=== PATIENT | female | born 1980 | race American Indian/Alaskan Native ===

== ENCOUNTER 2016-12-13 16:09 | Day surgery (SDC) | payer SELFPAY ==
[2016-12-13 17:24] LABS: Basophils % (Auto) 0.2 % (0.0-1.8); Eosinophils % (Auto) 1.4 % (0.0-4.3); Hematocrit 36.3 % (30.3-42.9); Hemoglobin 12.5 gm/dl (10.1-14.3); Mean Corpuscular HGB Conc 35 % (30-34); Mean Corpuscular Hemoglobin 31 pg (28-32); Mean Corpuscular Volume 91 fl (79-97); Platelet Count 216 K/mm3 (140-440); Red Blood Count 4.01 M/mm3 (3.65-5.03); White Blood Count 8.9 K/mm3 (4.5-11.0)
[2016-12-13 17:28] LABS: Anion Gap 19 mmol/L; Blood Urea Nitrogen 8 mg/dL (7-17); Calcium 8.8 mg/dL (8.4-10.2); Carbon Dioxide 22 mmol/L (22-30); Chloride 100.9 mmol/L (98-107); Glucose 94 mg/dL (65-100); Potassium 4.1 mmol/L (3.6-5.0); Sodium 138 mmol/L (137-145)
[2016-12-13] MEDS ORDERED: ZOFRAN IV ONE (18:00)
[2016-12-13] MEDS ORDERED: NACL 0.9% 1000 ML 1,000 ML IV ONE (18:00)
[2016-12-13] MEDS ORDERED: DILAUDID IV ONE (18:00)
--- NOTE | 2016-12-13 18:05 | Emergency Department Report ---
ED Abdominal Pain HPI - General Chief Complaint: Urogenital-Female Stated Complaint: ECTOPIC PREG Time Seen by Provider: 12/13/16 18:00 Source: patient Mode of arrival: Ambulatory Limitations: No Limitations - History of Present Illness MD Complaint: abdominal pain -: Gradual Location: RLQ Radiation: none Migration to: no migration Severity: moderate Severity scale (0 -10): 4 Quality: stabbing, aching Consistency: constant Improves With: nothing Worsens With: nothing Associated Symptoms: denies: nausea, vomiting, diarrhea, fever, chills, constipation, dysuria, hematemesis, hematochezia - Related Data LMP (females 10-50): Home Medications Medication Instructions Recorded Confirmed Last Taken Amlodipine Besylate/Benazepril 1 each PO QDAY 12/13/16 12/13/16 12/13/16 [Lotrel 5-20 mg] Naproxen Sodium [Aleve TAB] 440 mg PO QDAY PRN 12/13/16 12/13/16 12/13/16 Previous Rx's Medication Instructions Recorded Last Taken Type HYDROcodone/APAP 5-325 [[place] 1 each PO Q6HR PRN #20 tablet 12/13/16 Unknown Rx 5/325] Allergies Allergy/AdvReac Type Severity Reaction Status Date / Time No Known Allergies Allergy Verified 12/13/16 20:30 ED Review of Systems ROS: Stated complaint: ECTOPIC PREG Other details as noted in HPI Comment: All other systems reviewed and negative ED Past Medical Hx - Past Medical History Hx Hypertension: Yes - Surgical History Additional Surgical History: HERNIA REPAIR. LEFT FALLOPIAN TUBE REMOVED 2006 - Social History Smoking Status: Never Smoker Substance Use Type: None - Medications Home Medications: Home Medications Medication Instructions Recorded Confirmed Last Taken Type Amlodipine Besylate/Benazepril 1 each PO QDAY 12/13/16 12/13/16 12/13/16 History [Lotrel 5-20 mg] HYDROcodone/APAP 5-325 [[place] 1 each PO Q6HR PRN #20 tablet 12/13/16 Unknown Rx 5/325] Naproxen Sodium [Aleve TAB] 440 mg PO QDAY PRN 12/13/16 12/13/16 12/13/16 History ED Physical Exam - General Limitations: No Limitations General appearance: alert, in no apparent distress - Head Head exam: Present: atraumatic, normocephalic - Eye Eye exam: Present: normal appearance, PERRL - ENT ENT exam: Present: mucous membranes moist - Neck Neck exam: Present: normal inspection - Respiratory Respiratory exam: Present: normal lung sounds bilaterally. Absent: respiratory distress - Cardiovascular Cardiovascular Exam: Present: regular rate, normal rhythm. Absent: systolic murmur, diastolic murmur, rubs, gallop - GI/Abdominal GI/Abdominal exam: Present: soft, tenderness (rlq moderate tenderness), normal bowel sounds. Absent: distended, guarding, rebound, rigid - Extremities Exam Extremities exam: Present: normal inspection - Back Exam Back exam: Present: normal inspection - Neurological Exam Neurological exam: Present: alert, oriented X3 - Psychiatric Psychiatric exam: Present: normal affect, normal mood - Skin Skin exam: Present: warm, dry, intact, normal color. Absent: rash ED Course Vital Signs 12/13/16 12/13/16 12/13/16 16:41 18:20 19:53 Temperature 99.0 F Pulse Rate 102 H 86 Respiratory 17 18 16 Rate Blood Pressure 140/90 Blood Pressure 121/73 [Left] O2 Sat by Pulse 100 99 Oximetry 12/13/16 12/13/16 12/13/16 21:25 22:55 23:00 Temperature 97.2 F L Pulse Rate 89 90 100 H Respiratory 16 14 19 Rate Blood Pressure 126/70 119/70 Blood Pressure 127/84 [Left] O2 Sat by Pulse 100 100 100 Oximetry 12/13/16 12/13/16 12/13/16 23:05 23:10 23:15 Temperature Pulse Rate 92 H 85 88 Respiratory 19 19 19 Rate Blood Pressure 118/74 131/74 127/79 Blood Pressure [Left] O2 Sat by Pulse 100 100 100 Oximetry 12/13/16 12/13/16 23:30 23:45 Temperature 98 F Pulse Rate 86 96 H Respiratory 19 19 Rate Blood Pressure 124/70 121/74 Blood Pressure [Left] O2 Sat by Pulse 100 100 Oximetry - Consultations Consultation #1: 12/13/16 18:06 obgtyn paged 2 min ago waiting on them to call back Consultation #2: 12/13/16 18:[address] jeromy montenegro and agree with the consult will see patient in the ER ED Medical Decision Making - Lab Data Result diagrams: 12/13/16 16:45 12/13/16 16:45 - Radiology Data Radiology results: report reviewed, image reviewed - Medical Decision Making admitted an to the OR by Dr. Montenegro Critical Care Time: Yes Critical care time in (mins) excluding proc time.: 35 Critical care attestation.: If time is entered above; I have spent that time in minutes in the direct care of this critically ill patient, excluding procedure time. ED Disposition Clinical Impression: Ectopic , Abdominal pain Disposition: OP ADMIT IP TO THIS HOSP Is pt being admited?: Yes Does the pt Need Aspirin: No Condition: Good Time of Disposition: 01:45
--- NOTE | 2016-12-13 20:27 | Short Stay Summary ---
Short Stay Documentation Date of service: 12/13/16 Narrative H&P: Pt is a 36yo BF LMP 11/12/16 presents from [facility] complaining of right sided pelvic pain. Pelvic u/s showed positive pole and heart rate in the right fallopian tube consistent with a Right ectopic . She had a previous left salpingectomy for a left ectopic . We will proceed with a Laproscopic surgery with left salpingostopmy, but possible left salpingectomy. - History Principal diagnosis: right ectopic H&P: obtained from office Past Medical History: hypertension Past Surgical History: Other (Laproscopic left salpingectomy; Hernia repair) Social history: no significant social history, single - Allergies and Medications Current Medications: Allergies No Known Allergies Allergy (Unverified 12/13/16 16:37) Home Medications Medication Instructions Recorded Confirmed Last Taken Type Amlodipine Besylate/Benazepril 1 each PO QDAY 12/13/16 12/13/16 12/13/16 History [Lotrel 5-20 mg] Naproxen Sodium [Aleve TAB] 440 mg PO QDAY PRN 12/13/16 12/13/16 12/13/16 History - Physical exam General appearance: no acute distress Integumentary: no rash HEENT: Atraumatic Lungs: Clear to auscultation Breasts: deferred Heart: Regular rate Gastrointestinal: normal, tenderness (RLQ) Female Genitourinary: deferred Rectal Exam: deferred Extremities: No edema Neurological: Normal gait, Normal speech - Brief post op/procedure progress note Date of procedure: 12/13/16 Pre-op diagnosis: 1. Pelvic pain 2. Right ectopic Post-op diagnosis: same (with hemotoperitoneum) Procedure: 1. Laproscopic right salpingectomy 2. Evacuation of hemtoperitoneum Anesthesia: GETA Findings: A normal uterus with absent left fallopian tube. Normal ovaries bilaterally. A large right adnexal mass within the right fallopian tube. Approximately 50ml of hematoperitoneum. Perihepatic adhesions. Surgeon: TRACY WILSON Desizing Machine Operator Head End: JOBY WILSON Estimated blood loss: 50-100ml Pathology: list (right fallopian tube) Specimen disposition: to lab Condition: stable - Hospital course Hospital course: Unremarkable. - Disposition Condition at discharge: Good Disposition: DC- TO HOME OR SELFCARE Short Stay Discharge Plan Activity: no restrictions Diet: regular Wound: open to air, keep clean and dry Follow up with: PRIMARY CARE, [Primary Care Provider] - 3-5 Days TRACY WILSON MD [Family Provider] - 14 Days Prescriptions: HYDROcodone/APAP 5-325 [[place] 5/325] 1 each PO Q6HR PRN #20 tablet PRN Reason: Pain
[2016-12-13] MEDS ORDERED: ANCEF/STERILE WATER 2 GM/20 ML 2 GM/20 ML SYRINGE IV NR (21:00)
[2016-12-13] MEDS ORDERED: LACTATED RINGERS 1,000 ML IV SCH (21:00)
[2016-12-13] MEDS ORDERED: DILAUDID ONE (21:30)
[2016-12-13] MEDS ORDERED: DIPRIVAN 10 MG/ML IV ONE (21:30)
[2016-12-13] MEDS ORDERED: QUELICIN ONE (21:31)
[2016-12-13] MEDS ORDERED: XYLOCAINE MPF 2% ONE (21:31)
[2016-12-13] MEDS ORDERED: ZEMURON IV ONE (21:31)
[2016-12-13] MEDS ORDERED: MARCAINE 0.5% 30 ML INFILTRATI ONE (21:32)
--- NOTE | 2016-12-13 21:41 | Anesthesia Day of Surgery ---
Anesthesia Day of Surgery - Day of Surgery Patient Examined: Yes Patient H&P Reviewed: Yes Patient is NPO: Yes (last meal @ 10:30AM)
--- NOTE | 2016-12-13 21:41 | Anesthesia Consultation ---
Anesthesia Consult and Med Hx Date of service: 12/13/16 - Airway Anesthetic Teeth Evaluation: Good ROM Head & Neck: Adequate Mental/Hyoid Distance: Adequate Mallampati Class: Class II Intubation Access Assessment: Probably Good - Pre-Operative Health Status ASA Pre-Surgery Classification: ASA2, Emergency Proposed Anesthetic Plan: General - Cardiovascular System Hx Hypertension: Yes - Additional Comments Anesthesia Medical History Comments: ectopic
[2016-12-13] MEDS ORDERED: MARCAINE 0.5% INFILTRATI ONE (22:00)
[2016-12-13] MEDS ORDERED: ANCEF ONE ×2 (22:10)
[2016-12-13] MEDS ORDERED: ZOFRAN ONE (22:38)
[2016-12-13] MEDS ORDERED: BLOXIVERZ ONE (22:39)
[2016-12-13] MEDS ORDERED: ROBINUL ONE (22:39)
[2016-12-13] MEDS ORDERED: TORADOL ONE (22:44)
[2016-12-13] MEDS ORDERED: NACL 0.9% 1000 ML 1,000 ML ONE (22:46)
--- NOTE | 2016-12-13 23:20 | Operative Report ---
Operative Report Operative Report: Date of procedure: 12/13/2016 Pre-operative diagnosis: 1. Pelvic pain 2. Right ectopic Post-operative diagnosis: Same with hematoperitoneum Procedure name(s): 1. Laparoscopic right salpingectomy 2. Evacuation of hematoperitoneum Surgeon: Abdiel Lr MD Open Hearth Furnace Laborer: Malinda Lr MD Anesthesia: General endotracheal intubation by Dr. Fabian Rodriguez EBL: 50 mL's Findings: A normal uterus with absent left fallopian tube. Normal ovaries bilaterally. A large mass in the distal portion of the right fallopian tube. Approximately 50 mls of hematoperitoneum. Perihepatic adhesions. Procedure: After the patient was correctly identified, she was prepped and draped in usual sterile fashion and placed in dorsolithotomy position. First the bladder was catheterized using Kay catheter, and next the speculum was placed in vaginal vault and the anterior lip of the cervix was grasped using single-tooth tenaculum. The uterine manipulator was then placed and the tenaculum and speculum were removed. Attention was then turned to the abdomen where first a periumbilical incision was made using the skin knife, and the Optiview trocar was inserted under direct visualization. After an adequate amount of abdominal insufflation, position of the pelvic organs found approximately 50 mL's of blood in the peritoneal cavity. The uterus appeared to be normal with absent left fallopian tube, and the right fallopian tube showed a large mass in the distal portion of the tube. Next a suprapubic incision and a right lateral incision was made through which 5 mm trochars were placed in order to aid in manipulation of the pelvic organs. The suction string studies director was used to suction blood from the pelvic cavity and irrigate the pelvic organs. The tripolar cautery was used to clamp cauterized and cut the distal portion of the right fallopian tube, thus excising the right ectopic . The specimen was placed in the Endopouch and removed and sent to pathology. Copious amounts of irrigation was again performed, and after excellent hemostasis was assured, the procedure was considered complete. The Tisseel sealant to sprayed along the salpingectomy site. All instruments removed from abdomen. The abdomen was deflated, and the periumbilical incision was closed using 0 Vicryl suture in a figure 8 configuration on the fascia followed by 4-0 Monocryl suture in a subcuticular fashion on the skin. The suprapubic and right lateral incisions were closed in similar fashion. Each incision was infiltrated using 0.5% Marcaine solution. The uterine manipulator was removed, the Kay catheter also removed, the patient tolerated the procedure well and was transported to recovery in stable condition.
[2016-12-13] MEDS ORDERED: NORCO 5/325 PO PRN (23:40)
[2016-12-13] MEDS ORDERED: DEMEROL ONE (23:45)
[2016-12-14 01:53] VITALS: BP 120/70
== END 2016-12-13 21:55 | disposition home or self-care (01) ==
LOC: ED 16:09 → OR 21:54
PROVIDERS: ATTEND Obstetrics & Gynecology
DX: O00.90 Unspecified ectopic pregnancy without intrauterine pregnancy (principal); I10 Essential (primary) hypertension; Z90.79 Acquired absence of other genital organ(s); Z98.890 Other specified postprocedural states; Z79.899 Other long term (current) drug therapy
CPT/HCPCS: 36415; 59151; 80048; 84702; 85025; 86850; 86900; 86901; 88305; 96361; 96374; 99291; J0330; J0690; J1170; J1885; J2175; J2405; J2704; J2710; J7030; J7120